=== PATIENT | female | born 1955 | race Caucasian/White ===

== ENCOUNTER 2018-03-13 17:57 | Emergency (ER) | payer MEDICARE, OTHER ==
[2018-03-13] MEDS ORDERED: IPRATROPIUM/ALBUTEROL SULFATE 3 ML AMPUL.NEB NEB ONE ×2 (18:46→20:48)
[2018-03-13 19:13] LABS: eGFR (Non-African) > 60
[2018-03-13 19:16] LABS: MEAN CORPUSCULAR HEMOGLOBIN 23.6 pg (28.0-34.0); MONOCYTES % 7.3 % (0.0-11.0)
[2018-03-13 19:17] LABS: EOSINOPHILS % 0.8 % (0.0-6.8); NEUTROPHILS # 11.9 # k/uL (1.4-7.7)
--- NOTE | 2018-03-13 19:21 | ED Physician Documentation ---
Dyspnea - HISTORIAN Historian: patient, friend - HPI Stated Complaint: Weakness Chief Complaint: Dyspnea Additional Information: onset 2 wks ago prog worse then . plus saw pcp 5 days ago apparently tested pos for flu a---dr apparently gave flu vacc plus tamiflu plus steroids-has cont get worse--on adm spo2=63 std nc then prog to rebreather at 12 L spo2 then to 99--abg rev pco2 Duration: continues in ED, worse Initiating Event: upper respiratory illness Severity: moderate, severe Exacerbated By: change in position, exertion, coughing (sputum yellow and frequent) Associated Symptoms: chills, chest discomfort, productive cough, heart racing, dizziness, light-headedness, other (has fallen unsteady on feet) - ROS CONST: recent illness EYES/ENT: none GI/: none, other (has diverticulosis recent rougage diet w/ slight flare colon) NEURO/PSYCH: denies: headache MS/SKIN/LYMPH: none - PAST HX Lung Disease: asthma, COPD, pneumonia, other (diverticulosis) PE Risk Factors: denies: hx of PE Surgeries/Procedures: other (gb) Allergies/Adverse Reactions: Allergies Allergy/AdvReac Type Severity Reaction Status Date / Time cephalexin monohydrate Allergy Verified 03/13/18 18:56 [From Keflex] levofloxacin [From Levaquin] Allergy Verified 03/13/18 18:56 Home Medications: Ambulatory Orders Medication Instructions Recorded LORazepam [Ativan] 1 tab PO PRN PRN 03/13/18 - SOCIAL HX Smoking History: less than 1 pack/day ( smoked [id number]) Drug Use: none - FAMILY HX Family History: none - VITAL SIGNS Vital Signs: Vital Signs Temp Pulse Resp BP Pulse Ox 98.6 F 127 H 36 H 128/106 99 03/13/18 17:57 03/13/18 18:52 03/13/18 17:57 03/13/18 17:57 03/13/18 18:52 - REVIEWED ASSESSMENTS Nursing Assessment Reviewed: Yes Vitals Reviewed: Yes ED Results Lab/Radiology - Radiology Radiology Impressions: cxr=bilat infiltrates - Orders Orders: ED Orders Category Date Time Status Continuous EKG monitoring Q30M Care 03/13/18 18:52 Active Continuous Pulse Oximetry Q30M Care 03/13/18 18:[address] IV Lock 1T Care 03/13/18 18:50 Active ARTERIAL BLOOD GAS Stat Lab 03/13/18 Uncollected BNP [NT-proBNP] Stat Lab 03/13/18 18:55 Received CBC/PLATELET/DIFF Routine Lab 03/13/18 18:55 Received CMP Routine Lab 03/13/18 18:55 Received PT-INR Routine Lab 03/13/18 18:55 Received TROPONIN I (cTnI) Stat Lab 03/13/18 18:55 Received Ipratropium/Albuterol Sulfate [Duoneb] Med 03/13/18 18:46 Discontinued 3 ml NEB NOW ONE Oxygen Daily Oxygen 03/13/18 19:00 Ordered EKG WITH COMPARISON Stat Ther 03/13/18 Ordered Dyspnea Physical Exam - EXAM General Appearance: moderate distress EENT: eye inspection normal Neck: nml inspection Respiratory: speaks full sentences, respiratory distress, prolonged expirations, retractions, decreased air movement, wheezes. No: stridor, no pleuritic chest pain, resp. fatigue (not particularly) CVS: reg. rate & rhythm, no murmur Abdomen: non-tender, no distention Skin: color nml, no rash. No: cyanosis, diaphoresis, pallor, ecchymosis, skin rash Extremities: non-tender, normal range of motion, no evidence of injury, no edema Neuro/Psych: oriented x3, motor nml, sensation nml, mood/affect nml Discharge Clincal Impression: acute exaberation copd, continued nicotine abuse, massive elev BNP UDO, NO APPARENT CHF Referrals: Primary Doctor,No [Primary Care Provider] - 2 Days Comments: MARKEDLY IMPROVED INSISTS ON GOING HOME --APPEARS APPROPRIATR RELATIVE WILL BE W/PT Condition: Good Disposition: HOME, SELF-CARE Decision to Admit: NO Decision Time: 23:15
[2018-03-13] MEDS ORDERED: 0.9 % SODIUM CHLORIDE 1,000 ML IV ONE (20:58)
[2018-03-13] MEDS ORDERED: methylPREDNISolone ACETATE 80 MG/ML VIAL IM ONE (23:04)
[2018-03-13] MEDS ORDERED: methylPREDNISolone ACETATE 80 MG/ML VIAL IM PRN (23:05)
[2018-03-14 00:01] VITALS: BP 102/49
--- NOTE | 2018-03-14 04:30 | Diagnostic Imaging Report ---
KEE LESLIE [facility] [address] [facility] [address] [place], [place]. [address] Report Submission Date: Mar 13, 2018 7:52:03 PM [employer] Patient Study Name: BRENDA DUONG Date: Mar 13, 2018 7:18:17 PM [employer] Modality Type: DX Gender: F Description: CHEST : 51 Institution: [facility] Physician: KEE LESLIE Chest, AP portable HISTORY Shortness of breath FINDINGS Mild diffuse bilateral lung infiltrates are present. There is no pneumothorax or pleural effusion. Heart size and pulmonary vascularity are normal. IMPRESSION Bilateral lung infiltrates. Electronically signed on Mar 13, 2018 7:52:03 PM [employer] by: Yohannes Gutierrez Infiltrates are predominantly in the upper lobes and right lower lobe. Addendum electronically signed by Yohannes Gutierrez on March 13, 2018 8:17:40 PM [employer] MTDD
== END 2018-03-13 23:35 | disposition home or self-care (01) ==
LOC: ED 17:57
DX: J44.1 Chronic obstructive pulmonary disease with (acute) exacerbation (principal); F17.210 Nicotine dependence, cigarettes, uncomplicated; R79.89 Other specified abnormal findings of blood chemistry
CPT/HCPCS: 36415; 71045; 80053; 83880; 84484; 85025; 85610; 87400; 93005; 94640; 96372; 99284; 99285; J1040; J7030; S1016